=== PATIENT | female | born 1990 | race Caucasian/White ===

== ENCOUNTER 2018-09-04 08:28 | Emergency (ER) | payer MEDICAID ==
[~2018-09-04] VITALS: Ht 165.1 cm; Wt 50.0 kg
[~2018-09-04 08:28] MED LIST: CEPH-571 PO; HYDR-4383 PO
[2018-09-04 08:38] VITALS: BP 106/45
[2018-09-04] MEDS ORDERED: MELO-102 PO (09:07)
[2018-09-04] MEDS ORDERED: CEPH500C5 PO (09:07)
[2018-09-04] MEDS ORDERED: TRAM50TA2 PO (09:07)
[2018-09-04] MEDS ORDERED: TRIA15CR61 TOP (09:07)
== END 2018-09-04 09:39 | disposition home or self-care (01) ==
LOC: ER 08:28
DX: R21 Rash and other nonspecific skin eruption (principal); M79.652 Pain in left thigh; M79.89 Other specified soft tissue disorders
CPT/HCPCS: 99283

== ENCOUNTER 2018-11-04 12:50 | Emergency (ER) | payer MEDICAID ==
[~2018-11-04] VITALS: Ht 165.1 cm; Wt 49.1 kg
[~2018-11-04 12:50] MED LIST changes: +CEPH500C5 PO; +MELO-102 PO
[2018-11-04] MEDS ORDERED: DOXYCYCLINE 100MG CAPSULE PO STA (13:34)
[2018-11-04] MEDS ORDERED: CefTRIAXone 250MG IM Kit w/LIDOcaine IM ONE (13:35)
[2018-11-04] MEDS ORDERED: DOXY100C43 PO (13:44)
--- NOTE | 2018-11-04 14:37 | NUR ---
Roberth CORDERO AWARE OF TEMP 102.0, PT SAID SHE WILL TAKE ALEVE AT HOME, OFFERED PT TYLENOL BEFORE SHE LEFT, PT SAID SHE FELT OK TAKING MED AT HOME AND WILL RETURN TO ER IF FEVER IS NOT CONTROLLED BY OTC MED, PT VERBALIZED UNDERSTANDING
[2018-11-04 14:43] VITALS: BP 114/54
== END 2018-11-04 14:48 | disposition home or self-care (01) ==
LOC: ER 12:51
DX: L03.314 Cellulitis of groin (principal); Z79.2 Long term (current) use of antibiotics; Z79.899 Other long term (current) drug therapy
CPT/HCPCS: 96372; 99283; J0696